=== PATIENT | female | born 1960 | race African-American/Black ===

== ENCOUNTER 2022-08-15 06:25 | Emergency (ER) | payer BC ==
[~2022-08-15] VITALS: Ht 182.9 cm; Wt 70.0 kg
[~2022-08-15 06:25] MED LIST: CLON1TAB23 MT; GLAT40SY3 SQ; LEVO-65 MT; OXCA150T29 PO
[2022-08-15 08:13] LABS: BASOPHILS % 0.3 % (0.0-2.0); EOSINOPHILS % 0.4 % (0.0-5.0); HEMOGLOBIN. 13.6 g/dL (12.0-16.0); MEAN CORPUSCULAR HEMOGLOBIN 33.3 pg (28.0-32.0); MEAN PLATELET VOLUME 9.3 fl (7.4-10.4); MONOCYTES % 10.6 % (2.0-8.0); NEUTROPHILS % 71.7 % (40.0-76.0); PLATELET 232 x1000/uL (130-400); RED BLOOD CELL COUNT 4.08 mill/uL (4.2-5.4); RED CELL DISTRIBUTION WIDTH 13.9 % (11.6-14.6)
[2022-08-15 08:18] LABS: CHLORIDE 98 mEq/L (98-107)
[2022-08-15 14:56] LABS: CLARITY URINE CLEAR (CLEAR); COLOR URINE YELLOW (YELLOW); KETONES URINE NEGATIVE (NEGATIVE); LEUKOCYTE ESTERASE URINE NEGATIVE (NEGATIVE); NITRITE URINE NEGATIVE (NEGATIVE); OCCULT BLOOD URINE 3+ (NEGATIVE); PH URINE 5.5 (4.5-8.0); PROTEIN URINE 1+ (NEGATIVE); SPECIFIC GRAVITY URINE 1.013 (1.005-1.030); UROBILINOGEN URINE 0.2 E.U./dL (0.2-1.0)
[2022-08-15] MEDS ORDERED: CEFTRIAXONE 1GM PREMIX 50 ML IV ONE (17:15)
[2022-08-15] MEDS ORDERED: SODIUM CHLORIDE 0.9% 1,000 ML IV ONE (17:15)
[2022-08-15] MEDS ORDERED: CEFP200T13 MT (19:00)
[2022-08-15 20:35] VITALS: BP 135/84
== END 2022-08-15 20:43 | disposition home or self-care (01) ==
LOC: ER 06:25
DX: R14.0 Abdominal distension (gaseous) (principal); R33.9 Retention of urine, unspecified; Z79.899 Other long term (current) drug therapy
CPT/HCPCS: 36415; 51702; 71045; 74177; 80053; 81003; 83880; 84484; 85025; 93005; 96365; 99285; J0696; J7030